=== PATIENT | female | born 1940 | race Caucasian/White ===

== ENCOUNTER 2017-03-23 22:43 | Emergency (ER) | payer MEDICARE, OTHER ==
[~2017-03-23] VITALS: Ht 177.8 cm; Wt 84.2 kg
[2017-03-23] MEDS ORDERED: ONDANSETRON 2MG/ML, 2ML IVPush ONE (23:30)
[2017-03-23] MEDS ORDERED: SODIUM CHLORIDE FLUSH 10ML SYR IVF ONE (23:30)
[2017-03-23] MEDS ORDERED: SODIUM CHLORIDE 0.9% 1,000ML IVBOLUS ONE (23:30)
[2017-03-23 23:41] LABS: DAU SCREEN DISCLAIMER
[2017-03-23 23:44] LABS: HEMATOCRIT 39.4 % (34.6-47.8); HEMOGLOBIN 13.1 g/dL (11.7-16.4); WHITE BLOOD COUNT 5.6 x10^3/uL (3.4-10)
[2017-03-23] MEDS ORDERED: ONDANSETRON 2MG/ML, 2ML ONE (23:47)
[2017-03-23 23:54] LABS: PATH.CAST-FLAG NOT PRESENT; SPERM-FLAG NOT PRESENT; SRC-FLAG NOT PRESENT; XTAL-FLAG NOT PRESENT; YLC-FLAG NOT PRESENT
[2017-03-23 23:56] LABS: BLOOD UREA NITROGEN 16 mg/dL (7-18)
[2017-03-23 23:59] LABS: ACETAMINOPHEN < 2 mcg/mL (10-30); ASPARTATE AMINO TRANSFERASE 24 U/L (15-37)
[2017-03-24] MEDS ORDERED: LEVO25TA4 PO (00:55)
[2017-03-24] MEDS ORDERED: MAGN400T36 PO (01:03)
[2017-03-24] MEDS ORDERED: ESTR1TAB37 PO (01:03)
[2017-03-24] MEDS ORDERED: OMEP10CA4 PO (01:03)
[2017-03-24] MEDS ORDERED: POTA25TA4 PO (01:03)
[2017-03-24] MEDS ORDERED: CITA10TA4 PO (01:03)
[2017-03-24] MEDS ORDERED: GLUC500T11 PO (01:03)
[2017-03-24] MEDS ORDERED: ASCO125T PO (01:03)
[2017-03-24] MEDS ORDERED: TRAM100T2 PO (01:03)
[2017-03-24] MEDS ORDERED: ASPI300S PR (01:03)
[2017-03-24] MEDS ORDERED: VITA1CAP PO (01:03)
[2017-03-24] MEDS ORDERED: MELA1TAB19 SL (01:03)
[2017-03-24] MEDS ORDERED: DICL50TA2 PO (01:03)
[2017-03-24] MEDS ORDERED: BIOT1TAB3 PO (01:03)
[2017-03-24] MEDS ORDERED: CYAN1TAB29 PO (01:03)
[2017-03-24] MEDS ORDERED: CHOL400T5 PO (01:03)
[2017-03-24] MEDS ORDERED: SENN1TAB67 PO (01:03)
[2017-03-24] MEDS ORDERED: MULT-308 PO (01:03)
[2017-03-24 02:00] VITALS: BP 141/86
== END 2017-03-24 02:02 | disposition home or self-care (01) ==
LOC: ED 23:59
DX: T39.392A Poisoning by other nonsteroidal anti-inflammatory drugs [NSAID], intentional self-harm, initial encounter (principal); E03.9 Hypothyroidism, unspecified; Z88.8 Allergy status to other drugs, medicaments and biological substances; Y92.89 Other specified places as the place of occurrence of the external cause
CPT/HCPCS: 36415; 80053; 80307; 80329; 81001; 85025; 87086; 93005; 96361; 96374; 99285; J2405; J7030; G0480

== ENCOUNTER 2018-03-07 18:05 | Inpatient (IN) | payer MEDICARE ==
[~2018-03-07] VITALS: Ht 176.5 cm; Wt 92.4 kg
[~2018-03-07 18:05] MED LIST: ASCO125T PO; ASPI300S PR; BIOT1TAB3 PO; CHOL400T5 PO; CITA10TA4 PO; CYAN1TAB29 PO; DICL50TA2 PO; ESTR1TAB37 PO; GLUC500T11 PO; LEVO25TA4 PO; MAGN400T36 PO; MELA1TAB19 SL; MULT-308 PO; OMEP10CA4 PO; POTA25TA4 PO; SENN1TAB67 PO; TRAM100T33 PO; VITA1CAP PO
[2018-03-07] MEDS ORDERED: ALBUTEROL SULFATE 2.5 MG/3 ML ONE (18:44)
[2018-03-07] MEDS ORDERED: ALBUTEROL/IPRATROPIUM 2.5MG/0.5MG, 3 ML ONE (18:48)
[2018-03-07] MEDS ORDERED: SODIUM CHLORIDE FLUSH 10ML SYR IVF ONE (19:00)
[2018-03-07] MEDS ORDERED: ALBUTEROL/IPRATROPIUM 2.5MG/0.5MG, 3 ML NPPB SCH (19:00)
[2018-03-07 19:26] LABS: BASOPHILS # (AUTO) 0.01 x10^3/uL (0-0.1); BASOPHILS % (AUTO) 0 % (0-1); EOSINOPHILS # (AUTO) 1.41 x10^3/uL (0-0.4); EOSINOPHILS % (AUTO) 11 % (1-7); LYMPHOCYTES # (AUTO) 0.75 x10^3/uL (1-3.4); LYMPHOCYTES % (AUTO) 6 % (22-44); MD NO; MEAN CORPUSCULAR HEMOGLOBIN 32.4 pg (27.0-34.8); MEAN CORPUSCULAR HGB CONC 34.3 g/dL (32.4-35.8); MEAN CORPUSCULAR VOLUME 94.5 fL (80-100); MONOCYTES # (AUTO) 0.45 x10^3/uL (0.2-0.8); MONOCYTES % (AUTO) 4 % (2-9); NEUTROPHILS # (AUTO) 10.22 x10^3/uL (1.8-6.8); NEUTROPHILS % (AUTO) 80 % (42-75); PLATELET COUNT 335 x10^3/uL (130-400); RED BLOOD COUNT 4.09 x10^6/uL (3.82-5.3); RED CELL DISTRIBUTION WIDTH 14.3 % (9.6-15.2)
[2018-03-07] MEDS ORDERED: methylPREDNISolone SOD SUCC 125 MG/2 ML IVP ONE (19:30)
[2018-03-07 19:33] LABS: ALBUMIN 3.3 g/dL (3.4-5.0); ANION GAP 9 mmol/L (5-15); CALCIUM 9.1 mg/dL (8.5-10.1); CHLORIDE 108 mmol/L (98-107)
[2018-03-07 19:38] LABS: CREATININE 1.48 mg/dL (0.55-1.02); TROPONIN I < 0.015 ng/mL (0.000-0.045)
[2018-03-07] MEDS ORDERED: methylPREDNISolone SOD SUCC 125 MG/2 ML ONE (19:48)
[2018-03-07] MEDS ORDERED: BIOT1CAP3 PO (20:04)
[2018-03-07] MEDS ORDERED: ASPI-515 PO (20:04)
[2018-03-07] MEDS ORDERED: CEFTRIAXONE 1,000 MG in SODIUM CHLORIDE 0.9% 50 ML IVPB ONE (21:30)
[2018-03-07] MEDS ORDERED: AZITHROMYCIN 500 MG in SODIUM CHLORIDE 0.9% 250 ML IV SCH (21:30)
[2018-03-07] MEDS ORDERED: ONDANSETRON 2MG/ML, 2ML IVPush PRN (22:30)
[2018-03-07] MEDS ORDERED: BISACODYL 10 MG SUPP PR PRN (22:30)
[2018-03-07] MEDS: HEPARIN 5,000 UNITS/ML, 1ML SQ SCH (22:30)
[2018-03-07] MEDS: CEFTRIAXONE 1,000 MG in SODIUM CHLORIDE 0.9% 50 ML IV SCH (22:30)
[2018-03-07] MEDS ORDERED: POLYETHYLENE GLYCOL 17 GM PACKET PO PRN (22:30)
[2018-03-07 22:33] VITALS: BP 130/75
[2018-03-07] MEDS: SODIUM CHLORIDE 0.9% 1,000 ML IV SCH (23:20)
[2018-03-07] MEDS: AZITHROMYCIN 500 MG in SODIUM CHLORIDE 0.9% 250 ML IV SCH (23:20)
[2018-03-07] MEDS: MELATONIN 5 MG TABLET PO PRN (23:20)
[2018-03-07] MEDS: methylPREDNISolone SOD SUCC 125 MG/2 ML IVPush SCH (23:21)
[2018-03-07 23:28] VITALS: BP 130/75
[2018-03-08] MEDS ORDERED: ALBUTEROL SULFATE 2.5 MG/3 ML NPPB PRN (00:30)
[2018-03-08 01:37] VITALS: BP 126/70
[2018-03-08 04:59] LABS: CULTURE INDICATED? YES; MICROSCOPIC AUTO
[2018-03-08 05:12] LABS: BASOPHILS # (AUTO) 0.01 x10^3/uL (0-0.1); BASOPHILS % (AUTO) 0 % (0-1); EOSINOPHILS # (AUTO) 0.19 x10^3/uL (0-0.4); EOSINOPHILS % (AUTO) 3 % (1-7); LYMPHOCYTES % (AUTO) 8 % (22-44); MD NO; MEAN CORPUSCULAR HEMOGLOBIN 31.8 pg (27.0-34.8); MEAN CORPUSCULAR HGB CONC 33.9 g/dL (32.4-35.8); MEAN CORPUSCULAR VOLUME 93.9 fL (80-100); MEAN PLATELET VOLUME 7.2 fL (7.4-10.4); MONOCYTES % (AUTO) 1 % (2-9); NEUTROPHILS # (AUTO) 6.24 x10^3/uL (1.8-6.8); NEUTROPHILS % (AUTO) 87 % (42-75); PLATELET COUNT 338 x10^3/uL (130-400); RED BLOOD COUNT 3.74 x10^6/uL (3.82-5.3); RED CELL DISTRIBUTION WIDTH 14.3 % (9.6-15.2)
[2018-03-08 05:21] LABS: ALBUMIN 2.9 g/dL (3.4-5.0); ANION GAP 8 mmol/L (5-15); CALCIUM 9.1 mg/dL (8.5-10.1); CHLORIDE 110 mmol/L (98-107)
[2018-03-08 05:25] LABS: ALANINE AMINOTRANSFERASE 16 U/L (12-78); ALKALINE PHOSPHATASE 37 U/L (45-117); BILIRUBIN,TOTAL 0.6 mg/dL (0.2-1.0); CREATININE 1.17 mg/dL (0.55-1.02)
[2018-03-08] MEDS: HEPARIN 5,000 UNITS/ML, 1ML SQ SCH (06:00)
[2018-03-08 08:06] VITALS: BP 145/77
[2018-03-08] MEDS: ASCORBIC ACID 500 MG TABLET PO SCH (08:24)
[2018-03-08] MEDS: K-LYTE 25 MEQ TABLET.EFF PO SCH ×2 (08:24→08:36)
[2018-03-08] MEDS: SENNA/DOCUSATE TABLET PO SCH (08:25)
[2018-03-08] MEDS: CITALOPRAM 10 MG TABLET PO SCH (08:25)
[2018-03-08] MEDS: MULTIVITAMIN 1 TABLET PO SCH (08:25)
[2018-03-08] MEDS: CHOLECALCIFEROL 400 UNITS TABLET PO SCH (08:25)
[2018-03-08] MEDS: ASPIRIN 81 MG TABLET EC PO SCH (08:25)
[2018-03-08] MEDS: methylPREDNISolone SOD SUCC 125 MG/2 ML IVPush SCH ×2 (08:26→17:23)
[2018-03-08] MEDS: MAGNESIUM OXIDE 400 MG TABLET PO SCH (08:26)
[2018-03-08] MEDS: TEMPLATE NON-FORMULARY MED. (Biotin** 1 MG) HOMEMEDPO SCH (08:35)
[2018-03-08] MEDS: ACETAMINOPHEN 325 MG TABLET PO PRN (08:44)
[2018-03-08] MEDS ORDERED: TEMPLATE NON-FORMULARY MED. (Glucosamine Hcl** 500 MG) PO SCH (09:00)
[2018-03-08] MEDS ORDERED: OMEPRAZOLE 10 MG CAPSULE.DR PO SCH (09:00)
[2018-03-08] MEDS ORDERED: LEVOTHYROXINE 25 MCG TABLET PO SCH (09:00)
[2018-03-08] MEDS ORDERED: BENZONATATE 100 MG CAPSULE PO PRN (09:30)
[2018-03-08] MEDS: GUAIFENESIN/DM 200-20MG, 10ML UDC PO PRN ×2 (11:58→18:18)
[2018-03-08] MEDS: RIVAROXABAN 15 MG TABLET PO SCH ×2 (12:23→17:23)
[2018-03-08 13:06] VITALS: BP 121/74
[2018-03-08] MEDS: SODIUM CHLORIDE 0.9% 1,000 ML IV SCH (17:23)
[2018-03-08 21:00] VITALS: BP 138/76
[2018-03-08] MEDS: MELATONIN 5 MG TABLET PO PRN (22:00)
[2018-03-08] MEDS: CEFTRIAXONE 1,000 MG in SODIUM CHLORIDE 0.9% 50 ML IV SCH (22:00)
[2018-03-08] MEDS: AZITHROMYCIN 500 MG in SODIUM CHLORIDE 0.9% 250 ML IV SCH (22:49)
[2018-03-09] MEDS: methylPREDNISolone SOD SUCC 125 MG/2 ML IVPush SCH ×3 (00:13→23:42)
[2018-03-09 01:11] VITALS: BP 117/73
[2018-03-09] MEDS: LEVOTHYROXINE 150 MCG TABLET PO SCH (05:51)
[2018-03-09 07:29] LABS: ALBUMIN 2.6 g/dL (3.4-5.0); ANION GAP 6 mmol/L (5-15); CALCIUM 8.6 mg/dL (8.5-10.1); CHLORIDE 114 mmol/L (98-107); CREATININE 0.92 mg/dL (0.55-1.02)
[2018-03-09] MEDS: OMEPRAZOLE 10 MG CAPSULE.DR PO SCH (07:30)
[2018-03-09 08:19] VITALS: BP 145/81
[2018-03-09] MEDS: TEMPLATE NON-FORMULARY MED. (Biotin** 1 MG) HOMEMEDPO SCH (09:00)
[2018-03-09] MEDS: FLUTICASONE/VILANTEROL 100-25MCG/INH INH SCH (09:00)
[2018-03-09] MEDS ORDERED: ALBUTEROL SULFATE 2.5 MG/3 ML NPPB PRN (09:00)
[2018-03-09] MEDS ORDERED: ALBUTEROL SULFATE 2.5 MG/3 ML NPPB SCH (09:00)
[2018-03-09] MEDS: CHOLECALCIFEROL 400 UNITS TABLET PO SCH (09:13)
[2018-03-09] MEDS: ASCORBIC ACID 500 MG TABLET PO SCH (09:13)
[2018-03-09] MEDS: MULTIVITAMIN 1 TABLET PO SCH (09:13)
[2018-03-09] MEDS: CITALOPRAM 10 MG TABLET PO SCH (09:14)
[2018-03-09] MEDS: MAGNESIUM OXIDE 400 MG TABLET PO SCH (09:14)
[2018-03-09] MEDS: SENNA/DOCUSATE TABLET PO SCH (09:14)
[2018-03-09] MEDS: RIVAROXABAN 15 MG TABLET PO SCH ×2 (09:14→16:09)
[2018-03-09] MEDS: ASPIRIN 81 MG TABLET EC PO SCH (09:14)
[2018-03-09] MEDS: SODIUM CHLORIDE 0.9% 1,000 ML IV SCH (09:15)
[2018-03-09] MEDS: ALBUTEROL/IPRATROPIUM 2.5MG/0.5MG, 3 ML NPPB SCH ×5 (11:00→23:29)
[2018-03-09 12:42] VITALS: BP 143/70
[2018-03-09 20:00] VITALS: BP 124/70
[2018-03-09] MEDS: GUAIFENESIN/DM 200-20MG, 10ML UDC PO PRN (21:31)
[2018-03-09] MEDS: CEFTRIAXONE 1,000 MG in SODIUM CHLORIDE 0.9% 50 ML IV SCH (21:31)
[2018-03-09] MEDS: MELATONIN 5 MG TABLET PO PRN (21:31)
[2018-03-09] MEDS: AZITHROMYCIN 500 MG in SODIUM CHLORIDE 0.9% 250 ML IV SCH (22:14)
[2018-03-10 02:00] VITALS: BP 120/65
[2018-03-10] MEDS: GUAIFENESIN/DM 200-20MG, 10ML UDC PO PRN (04:09)
[2018-03-10] MEDS: ACETAMINOPHEN 325 MG TABLET PO PRN ×2 (04:09→10:05)
[2018-03-10] MEDS: LEVOTHYROXINE 150 MCG TABLET PO SCH (05:52)
[2018-03-10] MEDS: ALBUTEROL/IPRATROPIUM 2.5MG/0.5MG, 3 ML NPPB SCH (07:20)
[2018-03-10] MEDS: OMEPRAZOLE 10 MG CAPSULE.DR PO SCH (07:30)
[2018-03-10 07:45] VITALS: BP 135/71
[2018-03-10] MEDS: TEMPLATE NON-FORMULARY MED. (Biotin** 1 MG) HOMEMEDPO SCH (09:00)
[2018-03-10] MEDS: SODIUM CHLORIDE 0.9% 1,000 ML IV SCH (09:00)
[2018-03-10] MEDS: SENNA/DOCUSATE TABLET PO SCH (09:00)
[2018-03-10] MEDS: CHOLECALCIFEROL 400 UNITS TABLET PO SCH (10:04)
[2018-03-10] MEDS: FLUTICASONE/VILANTEROL 100-25MCG/INH INH SCH (10:04)
[2018-03-10] MEDS: MAGNESIUM OXIDE 400 MG TABLET PO SCH (10:05)
[2018-03-10] MEDS: ASPIRIN 81 MG TABLET EC PO SCH (10:05)
[2018-03-10] MEDS: RIVAROXABAN 15 MG TABLET PO SCH (10:05)
[2018-03-10] MEDS: MULTIVITAMIN 1 TABLET PO SCH (10:05)
[2018-03-10] MEDS: CITALOPRAM 10 MG TABLET PO SCH (10:06)
[2018-03-10] MEDS: ASCORBIC ACID 500 MG TABLET PO SCH (10:06)
[2018-03-10] MEDS: methylPREDNISolone SOD SUCC 125 MG/2 ML IVPush SCH (10:06)
[2018-03-10] MEDS ORDERED: BENZ-17 PO (10:51)
[2018-03-10] MEDS ORDERED: DOXY100T PO (10:51)
[2018-03-10] MEDS ORDERED: RIVA15TA PO (10:51)
[2018-03-10] MEDS ORDERED: RIVA20TA PO (10:51)
[2018-03-10] MEDS ORDERED: FLUT1AER INH (10:51)
[2018-03-10] MEDS ORDERED: SENN1TAB67 PO (10:52)
[2018-03-11] MEDS ORDERED: METH4TAB2 PO (10:13)
[2018-03-29] MEDS ORDERED: RIVAROXABAN 20 MG TABLET PO SCH (18:00)
== END 2018-03-10 12:00 | disposition home or self-care (01) | DRG 175 ==
LOC: ED 21:57 → 3NE 22:28 → DCLOUNGE 03-10 11:45
PROVIDERS: ADMIT Family Medicine; ATTEND Family Medicine
DX: I26.99 Other pulmonary embolism without acute cor pulmonale (principal); J96.01 Acute respiratory failure with hypoxia; R65.10 Systemic inflammatory response syndrome (SIRS) of non-infectious origin without acute organ dysfunction; E44.1 Mild protein-calorie malnutrition; J44.1 Chronic obstructive pulmonary disease with (acute) exacerbation; D72.829 Elevated white blood cell count, unspecified; R00.0 Tachycardia, unspecified; E03.9 Hypothyroidism, unspecified; H40.9 Unspecified glaucoma; Z66 Do not resuscitate; Z82.49 Family history of ischemic heart disease and other diseases of the circulatory system; Z90.710 Acquired absence of both cervix and uterus; Z96.653 Presence of artificial knee joint, bilateral; Z68.29 Body mass index [BMI] 29.0-29.9, adult
CPT/HCPCS: 36415; 71045; 71046; 78582; 80048; 80053; 80069; 81001; 82040; 83605; 83880; 84484; 85025; 87040; 87086; 93005; 93306; 93970; 94640; 96365; 96375; J0456; J0696; J7620; A9540; A9558; C9898; J2930; J7030; J7050

== ENCOUNTER 2019-06-15 16:13 | Inpatient (IN) | payer MEDICARE ==
[~2019-06-15] VITALS: Ht 172.7 cm; Wt 93.5 kg
[~2019-06-15 16:13] MED LIST changes: +ASPI-515 PO; +BENZ-17 PO; +BIOT1CAP3 PO; +DOXY100T PO; +FLUT1AER INH; +METH4TAB2 PO; -OMEP10CA4 PO; +OMEP10CA5 PO; +RIVA15TA PO; +RIVA20TA PO
[2019-06-15] MEDS ORDERED: SODIUM CHLORIDE 0.9% 1,000 ML IV ONE (17:04)
[2019-06-15] MEDS ORDERED: SODIUM CHLORIDE FLUSH 10ML SYR IVF ONE (17:30)
[2019-06-15 17:40] LABS: MICROSCOPIC AUTO
[2019-06-15 17:46] LABS: BASOPHILS # (AUTO) 0.03 x10^3/uL (0-0.1); BASOPHILS % (AUTO) 0 % (0-1); EOSINOPHILS # (AUTO) 0.21 x10^3/uL (0-0.4); EOSINOPHILS % (AUTO) 3 % (1-7); LYMPHOCYTES # (AUTO) 1.31 x10^3/uL (1-3.4); LYMPHOCYTES % (AUTO) 18 % (22-44); MD NO; MEAN CORPUSCULAR HEMOGLOBIN 32.6 pg (27.0-34.8); MEAN CORPUSCULAR HGB CONC 33.1 g/dL (32.4-35.8); MEAN CORPUSCULAR VOLUME 98.3 fL (80-100); MEAN PLATELET VOLUME 7.3 fL (7.4-10.4); MONOCYTES # (AUTO) 0.93 x10^3/uL (0.2-0.8); MONOCYTES % (AUTO) 12 % (2-9); NEUTROPHILS % (AUTO) 67 % (42-75); PLATELET COUNT 380 x10^3/uL (130-400); RED BLOOD COUNT 3.71 x10^6/uL (3.82-5.3); RED CELL DISTRIBUTION WIDTH 13.8 % (9.6-15.2)
[2019-06-15 17:49] LABS: ALANINE AMINOTRANSFERASE 19 U/L (12-78); ALBUMIN 3.4 g/dL (3.4-5.0); ANION GAP 6 mmol/L (5-15); CHLORIDE 102 mmol/L (98-107); CREATININE 1.83 mg/dL (0.55-1.02)
[2019-06-15 17:53] LABS: CULTURE INDICATED? YES
[2019-06-15 17:57] LABS: CALCIUM 14.9 mg/dL (8.5-10.1)
[2019-06-15 17:59] LABS: ALKALINE PHOSPHATASE 134 U/L (45-117); BILIRUBIN,TOTAL 0.5 mg/dL (0.2-1.0); CREATINE KINASE, TOTAL 93 U/L (26-192); TOTAL PROTEIN 7.8 g/dL (6.4-8.2)
[2019-06-15 18:12] LABS: FREE T4 (FREE THYROXINE) 1.59 ng/dL (0.76-1.46)
--- NOTE | 2019-06-15 19:06 | NUR ---
ONEIL PA AT BEDSIDE, PT ASSESSMENT REVIEWED. DISCUSSED PT SP02 LEVELS 89-91% ON RA, LUNG SOUNDS DECREASED T/O BUT NO ADVENTITIOUS SOUNDS HEARD.
[2019-06-15] MEDS ORDERED: BISACODYL 10 MG SUPP PR PRN (19:30)
[2019-06-15] MEDS ORDERED: POTASSIUM CHLORIDE 20 MEQ TAB.ER.PRT PO ONE (19:30)
[2019-06-15] MEDS ORDERED: FUROSEMIDE 40 MG/4 ML IV ONE (19:30)
[2019-06-15] MEDS ORDERED: ONDANSETRON ODT 4 MG PO PRN (19:30)
[2019-06-15] MEDS ORDERED: POLYETHYLENE GLYCOL 17 GM PACKET PO PRN (19:30)
[2019-06-15] MEDS ORDERED: MAGNESIUM SULFATE PMX 2GM/50ML 50 ML IV ONE (19:30)
[2019-06-15 20:04] VITALS: BP 158/78
[2019-06-15] MEDS: IPRATROPIUM 0.5 MG/2.5 ML INHA NPPB SCH (21:20)
[2019-06-15] MEDS: ALBUTEROL SULFATE 2.5MG/0.5ML NPPB SCH (21:25)
[2019-06-15] MEDS: HEPARIN 5,000 UNITS/ML, 1ML SQ SCH (21:31)
[2019-06-15] MEDS: CEFTRIAXONE PMX 1GM/50ML 50 ML IV SCH (22:55)
[2019-06-15] MEDS: NS + 20MEQ KCL 1,000 ML IV SCH (22:55)
[2019-06-16] MEDS: MELATONIN 3 MG TABLET PO SCH ×2 (00:11→22:05)
[2019-06-16 00:41] VITALS: BP 163/51
[2019-06-16] MEDS: ALBUTEROL SULFATE 2.5MG/0.5ML NPPB SCH ×2 (03:00→07:06)
[2019-06-16] MEDS: HEPARIN 5,000 UNITS/ML, 1ML SQ SCH ×3 (04:58→22:05)
[2019-06-16] MEDS: NS + 20MEQ KCL 1,000 ML IV SCH (04:58)
[2019-06-16 05:10] LABS: BASOPHILS # (AUTO) 0.02 x10^3/uL (0-0.1); BASOPHILS % (AUTO) 0 % (0-1); EOSINOPHILS # (AUTO) 0.16 x10^3/uL (0-0.4); EOSINOPHILS % (AUTO) 2 % (1-7); LYMPHOCYTES % (AUTO) 19 % (22-44); MD NO; MEAN CORPUSCULAR HEMOGLOBIN 31.9 pg (27.0-34.8); MEAN CORPUSCULAR HGB CONC 32.6 g/dL (32.4-35.8); MEAN CORPUSCULAR VOLUME 98.1 fL (80-100); MONOCYTES # (AUTO) 0.85 x10^3/uL (0.2-0.8); MONOCYTES % (AUTO) 10 % (2-9); NEUTROPHILS # (AUTO) 5.84 x10^3/uL (1.8-6.8); NEUTROPHILS % (AUTO) 69 % (42-75); PLATELET COUNT 406 x10^3/uL (130-400); RED BLOOD COUNT 3.94 x10^6/uL (3.82-5.3); RED CELL DISTRIBUTION WIDTH 13.4 % (9.6-15.2)
[2019-06-16 05:18] LABS: ALBUMIN 3.5 g/dL (3.4-5.0); ANION GAP 6 mmol/L (5-15); CHLORIDE 103 mmol/L (98-107)
[2019-06-16 05:21] LABS: ALANINE AMINOTRANSFERASE 17 U/L (12-78); ALKALINE PHOSPHATASE 140 U/L (45-117); BILIRUBIN,TOTAL 0.4 mg/dL (0.2-1.0); CREATININE 1.87 mg/dL (0.55-1.02); TOTAL PROTEIN 8.2 g/dL (6.4-8.2)
[2019-06-16] MEDS: IPRATROPIUM 0.5 MG/2.5 ML INHA NPPB SCH (07:06)
[2019-06-16] MEDS: OMEPRAZOLE 10 MG CAPSULE.DR PO SCH (08:03)
[2019-06-16] MEDS: ASCORBIC ACID 500 MG TABLET PO SCH (08:03)
[2019-06-16] MEDS: MAGNESIUM OXIDE 400 MG TABLET PO SCH (08:04)
[2019-06-16] MEDS: CITALOPRAM 10 MG TABLET PO SCH (08:04)
[2019-06-16] MEDS: ASPIRIN 81 MG TABLET EC PO SCH (08:04)
[2019-06-16] MEDS: SENNA/DOCUSATE TABLET PO SCH (08:04)
[2019-06-16 08:30] VITALS: BP 145/76
[2019-06-16] MEDS ORDERED: FLUTICASONE/VILANTEROL 100-25MCG/INH INH SCH (09:00)
[2019-06-16] MEDS ORDERED: TEMPLATE NON-FORMULARY MED. (Glucosamine Hcl** 500 MG) PO SCH (09:00)
[2019-06-16] MEDS ORDERED: TEMPLATE NON-FORMULARY MED. (Biotin** 1 MG) PO SCH (09:00)
[2019-06-16] MEDS ORDERED: TEMPLATE NON-FORMULARY MED. (Melatonin** 1 MG) SL SCH (09:00)
[2019-06-16] MEDS ORDERED: ALBUTEROL SULFATE 2.5MG/0.5ML NPPB PRN (10:00)
[2019-06-16] MEDS ORDERED: BUTALB/APAP/CAFFEINE 50MG/325MG/40MG PO PRN (11:30)
[2019-06-16] MEDS ORDERED: CALCITONIN SALMON 200 UNITS/ML, 2ML SQ SCH (11:30)
[2019-06-16] MEDS ORDERED: MAGNESIUM CITRATE 300ML ORAL SOL PO PRN ×2 (11:30→13:30)
[2019-06-16] MEDS: ACETAMINOPHEN 325 MG TABLET PO PRN (12:29)
[2019-06-16 13:00] VITALS: BP 146/77
[2019-06-16] MEDS: SODIUM CHLORIDE 0.9% 1,000 ML IV SCH ×3 (13:17→22:20)
[2019-06-16] MEDS ORDERED: NS + 20MEQ KCL 1,000 ML IV SCH (19:09)
[2019-06-16 20:16] VITALS: BP 187/80
[2019-06-16] MEDS ORDERED: hydrALAzine 20 MG/ML, 1ML IV ONE (21:30)
[2019-06-16] MEDS: CEFTRIAXONE PMX 1GM/50ML 50 ML IV SCH (22:18)
[2019-06-17] VITALS (13 sets, daily range): BP systolic 147–196; BP diastolic 71–95
[2019-06-17] MEDS: HEPARIN 5,000 UNITS/ML, 1ML SQ SCH ×3 (05:50→20:44)
[2019-06-17 05:56] LABS: ALANINE AMINOTRANSFERASE 17 U/L (12-78); ALBUMIN 3.1 g/dL (3.4-5.0); ANION GAP 5 mmol/L (5-15); CALCIUM 13.1 mg/dL (8.5-10.1); CHLORIDE 108 mmol/L (98-107)
[2019-06-17 05:59] LABS: ALKALINE PHOSPHATASE 122 U/L (45-117); BILIRUBIN,TOTAL 0.3 mg/dL (0.2-1.0); CREATININE 1.88 mg/dL (0.55-1.02); TOTAL PROTEIN 6.7 g/dL (6.4-8.2)
[2019-06-17] MEDS: SODIUM CHLORIDE 0.9% 1,000 ML IV SCH ×4 (08:01→21:38)
[2019-06-17] MEDS: MAGNESIUM OXIDE 400 MG TABLET PO SCH (08:02)
[2019-06-17] MEDS: ASPIRIN 81 MG TABLET EC PO SCH (08:02)
[2019-06-17] MEDS: OMEPRAZOLE 10 MG CAPSULE.DR PO SCH (08:02)
[2019-06-17] MEDS: SENNA/DOCUSATE TABLET PO SCH (08:03)
[2019-06-17] MEDS: ASCORBIC ACID 500 MG TABLET PO SCH (08:03)
[2019-06-17] MEDS: LABETALOL 5 MG/ML SYR. (IV ONLY) IVPush PRN ×2 (08:59→13:26)
[2019-06-17] MEDS: CITALOPRAM 10 MG TABLET PO SCH (09:00)
[2019-06-17] MEDS: AMLODIPINE 5 MG TABLET PO SCH ×2 (09:46→20:43)
[2019-06-17] MEDS ORDERED: CALCITONIN SALMON 200 UNITS/ML, 2ML SQ ONE (11:00)
[2019-06-17] MEDS ORDERED: METO50TA6 PO (11:19)
[2019-06-17] MEDS ORDERED: AMLO5TAB10 PO (11:19)
[2019-06-17] MEDS: METOPROLOL TARTRATE 50 MG TABLET PO SCH ×2 (13:27→17:30)
[2019-06-17] MEDS ORDERED: hydrALAzine 20 MG/ML, 1ML IV PRN (15:30)
[2019-06-17] MEDS: MELATONIN 3 MG TABLET PO SCH (20:43)
[2019-06-17] MEDS: CEFTRIAXONE PMX 1GM/50ML 50 ML IV SCH (21:38)
[2019-06-18] VITALS (7 sets, daily range): BP systolic 132–166; BP diastolic 65–76
[2019-06-18] MEDS: SODIUM CHLORIDE 0.9% 1,000 ML IV SCH ×2 (01:22→05:11)
[2019-06-18] MEDS: HEPARIN 5,000 UNITS/ML, 1ML SQ SCH ×3 (05:11→21:12)
[2019-06-18] MEDS: METOPROLOL TARTRATE 50 MG TABLET PO SCH ×2 (05:11→17:54)
[2019-06-18 06:05] LABS: ALBUMIN 2.7 g/dL (3.4-5.0); ANION GAP 6 mmol/L (5-15); CALCIUM 10.1 mg/dL (8.5-10.1); CHLORIDE 112 mmol/L (98-107)
[2019-06-18 06:08] LABS: ALANINE AMINOTRANSFERASE 15 U/L (12-78); ALKALINE PHOSPHATASE 105 U/L (45-117); BILIRUBIN,TOTAL 0.3 mg/dL (0.2-1.0); CREATININE 1.55 mg/dL (0.55-1.02); TOTAL PROTEIN 6.1 g/dL (6.4-8.2)
[2019-06-18] MEDS ORDERED: POTASSIUM CHLORIDE 10 MEQ TABLET.ER PO SCH (08:00)
[2019-06-18] MEDS ORDERED: MAGNESIUM CITRATE 300ML ORAL SOL PO ONE (08:30)
[2019-06-18] MEDS ORDERED: CEFDINIR 300 MG CAPSULE ONE (09:28)
[2019-06-18] MEDS ORDERED: MAGNESIUM CITRATE 300ML ORAL SOL ONE (09:28)
[2019-06-18] MEDS: AMLODIPINE 5 MG TABLET PO SCH ×2 (09:34→20:03)
[2019-06-18] MEDS: CEFDINIR 300 MG CAPSULE PO SCH ×2 (09:35→20:03)
[2019-06-18] MEDS: CITALOPRAM 10 MG TABLET PO SCH (09:35)
[2019-06-18] MEDS: MAGNESIUM OXIDE 400 MG TABLET PO SCH (09:35)
[2019-06-18] MEDS: SENNA/DOCUSATE TABLET PO SCH (09:35)
[2019-06-18] MEDS: OMEPRAZOLE 10 MG CAPSULE.DR PO SCH (09:35)
[2019-06-18] MEDS: ASPIRIN 81 MG TABLET EC PO SCH (09:35)
[2019-06-18] MEDS: ASCORBIC ACID 500 MG TABLET PO SCH (09:36)
[2019-06-18] MEDS ORDERED: SODIUM CHLORIDE 0.9% 1,000 ML IV SCH (11:30)
[2019-06-18] MEDS: ACETAMINOPHEN 325 MG TABLET PO PRN (15:51)
[2019-06-18] MEDS: MELATONIN 3 MG TABLET PO SCH (20:03)
[2019-06-18] MEDS: TIMOLOL OPHTH 0.5%, 5ML EACHEYE SCH (20:09)
[2019-06-18 23:48] LABS: MICROSCOPIC NOT IND
[2019-06-19] VITALS (12 sets, daily range): BP systolic 102–184; BP diastolic 57–98
[2019-06-19 00:01] LABS: CREATININE,URINE RANDOM 40.3 mg/dL
[2019-06-19] MEDS: HEPARIN 5,000 UNITS/ML, 1ML SQ SCH ×3 (04:57→20:38)
[2019-06-19] MEDS: METOPROLOL TARTRATE 50 MG TABLET PO SCH ×2 (05:00→17:41)
[2019-06-19 05:40] LABS: BASOPHILS # (AUTO) 0.03 x10^3/uL (0-0.1); BASOPHILS % (AUTO) 0 % (0-1); EOSINOPHILS # (AUTO) 0.18 x10^3/uL (0-0.4); EOSINOPHILS % (AUTO) 3 % (1-7); LYMPHOCYTES % (AUTO) 24 % (22-44); MD NO; MEAN CORPUSCULAR HEMOGLOBIN 32.9 pg (27.0-34.8); MEAN CORPUSCULAR HGB CONC 33.1 g/dL (32.4-35.8); MEAN CORPUSCULAR VOLUME 99.4 fL (80-100); MEAN PLATELET VOLUME 7.1 fL (7.4-10.4); MONOCYTES # (AUTO) 0.62 x10^3/uL (0.2-0.8); MONOCYTES % (AUTO) 9 % (2-9); NEUTROPHILS # (AUTO) 4.72 x10^3/uL (1.8-6.8); NEUTROPHILS % (AUTO) 65 % (42-75); PLATELET COUNT 282 x10^3/uL (130-400); RED BLOOD COUNT 2.95 x10^6/uL (3.82-5.3); RED CELL DISTRIBUTION WIDTH 13.9 % (9.6-15.2)
[2019-06-19 05:50] LABS: CALCIUM 10.6 mg/dL (8.5-10.1); CHLORIDE 112 mmol/L (98-107)
[2019-06-19 05:55] LABS: ALANINE AMINOTRANSFERASE 20 U/L (12-78); ALBUMIN 2.8 g/dL (3.4-5.0); ALKALINE PHOSPHATASE 117 U/L (45-117); ANION GAP 5 mmol/L (5-15); BILIRUBIN,TOTAL 0.5 mg/dL (0.2-1.0); CREATININE 1.51 mg/dL (0.55-1.02); TOTAL PROTEIN 6.3 g/dL (6.4-8.2)
[2019-06-19] MEDS ORDERED: POTASSIUM CHLORIDE 20 MEQ TAB.ER.PRT PO SCH (08:00)
[2019-06-19] MEDS ORDERED: POTASSIUM PHOSPHATE 22 MEQ in SODIUM CHLORIDE 0.9% 500 ML IV ONE (08:30)
[2019-06-19] MEDS: ASPIRIN 81 MG TABLET EC PO SCH (08:53)
[2019-06-19] MEDS: CEFDINIR 300 MG CAPSULE PO SCH ×2 (08:53→20:39)
[2019-06-19] MEDS: SENNA/DOCUSATE TABLET PO SCH (08:53)
[2019-06-19] MEDS: OMEPRAZOLE 10 MG CAPSULE.DR PO SCH (08:54)
[2019-06-19] MEDS: MAGNESIUM OXIDE 400 MG TABLET PO SCH (08:54)
[2019-06-19] MEDS: ASCORBIC ACID 500 MG TABLET PO SCH (08:55)
[2019-06-19] MEDS: AMLODIPINE 5 MG TABLET PO SCH ×2 (08:55→20:39)
[2019-06-19] MEDS: POTASSIUM CHLORIDE 20 MEQ TAB.ER.PRT PO SCH ×4 (08:55→20:39)
[2019-06-19] MEDS: CITALOPRAM 10 MG TABLET PO SCH (08:56)
[2019-06-19] MEDS: TIMOLOL OPHTH 0.5%, 5ML EACHEYE SCH ×2 (08:58→20:40)
[2019-06-19] MEDS: ACETAMINOPHEN 325 MG TABLET PO PRN (09:24)
[2019-06-19] MEDS: SODIUM CHLORIDE 0.9% 1,000 ML IV SCH (20:39)
[2019-06-19] MEDS: MELATONIN 3 MG TABLET PO SCH (20:39)
[2019-06-20] VITALS (7 sets, daily range): BP systolic 162–182; BP diastolic 69–84
[2019-06-20] MEDS: SODIUM CHLORIDE 0.9% 1,000 ML IV SCH ×3 (05:24→20:03)
[2019-06-20 05:43] LABS: CHLORIDE 113 mmol/L (98-107)
[2019-06-20 05:51] LABS: ALANINE AMINOTRANSFERASE 17 U/L (12-78); ALBUMIN 2.8 g/dL (3.4-5.0); ALKALINE PHOSPHATASE 114 U/L (45-117); ANION GAP 3 mmol/L (5-15); BILIRUBIN,TOTAL 0.4 mg/dL (0.2-1.0); CALCIUM 10.8 mg/dL (8.5-10.1); CREATININE 1.44 mg/dL (0.55-1.02); TOTAL PROTEIN 6.1 g/dL (6.4-8.2)
[2019-06-20] MEDS: METOPROLOL TARTRATE 50 MG TABLET PO SCH ×2 (06:02→17:17)
[2019-06-20] MEDS: HEPARIN 5,000 UNITS/ML, 1ML SQ SCH ×3 (06:02→21:05)
[2019-06-20] MEDS: TIMOLOL OPHTH 0.5%, 5ML EACHEYE SCH ×2 (09:32→20:01)
[2019-06-20] MEDS: CEFDINIR 300 MG CAPSULE PO SCH ×2 (09:33→20:02)
[2019-06-20] MEDS: SENNA/DOCUSATE TABLET PO SCH (09:33)
[2019-06-20] MEDS: OMEPRAZOLE 10 MG CAPSULE.DR PO SCH (09:33)
[2019-06-20] MEDS: ASCORBIC ACID 500 MG TABLET PO SCH (09:34)
[2019-06-20] MEDS: POTASSIUM CHLORIDE 20 MEQ TAB.ER.PRT PO SCH ×3 (09:34→20:01)
[2019-06-20] MEDS: CITALOPRAM 10 MG TABLET PO SCH (09:35)
[2019-06-20] MEDS: MAGNESIUM OXIDE 400 MG TABLET PO SCH (09:35)
[2019-06-20] MEDS: AMLODIPINE 5 MG TABLET PO SCH ×2 (09:35→20:01)
[2019-06-20] MEDS: ASPIRIN 81 MG TABLET EC PO SCH (09:35)
[2019-06-20] MEDS: CALCITONIN NASAL 200 UNITS/0.09ML, 3.7ML NAS SCH (10:16)
[2019-06-20] MEDS: MELATONIN 3 MG TABLET PO SCH (20:01)
[2019-06-21 01:44] VITALS: BP 161/77
[2019-06-21] MEDS: ACETAMINOPHEN 325 MG TABLET PO PRN (03:36)
[2019-06-21] MEDS: SODIUM CHLORIDE 0.9% 1,000 ML IV SCH ×2 (04:00→12:00)
[2019-06-21] MEDS: HEPARIN 5,000 UNITS/ML, 1ML SQ SCH (05:13)
[2019-06-21] MEDS: METOPROLOL TARTRATE 50 MG TABLET PO SCH (05:43)
[2019-06-21 06:36] LABS: ALANINE AMINOTRANSFERASE 20 U/L (12-78); ALBUMIN 2.7 g/dL (3.4-5.0); ANION GAP 5 mmol/L (5-15); CALCIUM 10.7 mg/dL (8.5-10.1); CHLORIDE 112 mmol/L (98-107)
[2019-06-21 06:39] LABS: ALKALINE PHOSPHATASE 118 U/L (45-117); BILIRUBIN,TOTAL 0.4 mg/dL (0.2-1.0); CREATININE 1.45 mg/dL (0.55-1.02)
[2019-06-21 07:58] VITALS: BP 160/76
[2019-06-21] MEDS: CEFDINIR 300 MG CAPSULE PO SCH (09:11)
[2019-06-21] MEDS: POTASSIUM CHLORIDE 20 MEQ TAB.ER.PRT PO SCH (09:12)
[2019-06-21] MEDS: OMEPRAZOLE 10 MG CAPSULE.DR PO SCH (09:12)
[2019-06-21] MEDS: CITALOPRAM 10 MG TABLET PO SCH (09:12)
[2019-06-21] MEDS: ASCORBIC ACID 500 MG TABLET PO SCH (09:13)
[2019-06-21] MEDS: AMLODIPINE 5 MG TABLET PO SCH (09:13)
[2019-06-21] MEDS: ASPIRIN 81 MG TABLET EC PO SCH (09:13)
[2019-06-21] MEDS: MAGNESIUM OXIDE 400 MG TABLET PO SCH (09:13)
[2019-06-21] MEDS: SENNA/DOCUSATE TABLET PO SCH (09:13)
[2019-06-21] MEDS: CALCITONIN NASAL 200 UNITS/0.09ML, 3.7ML NAS SCH (09:22)
[2019-06-21] MEDS: TIMOLOL OPHTH 0.5%, 5ML EACHEYE SCH (09:23)
[2019-06-21] MEDS ORDERED: CLON-275 PO (09:38)
[2019-06-21] MEDS ORDERED: CEFD300C37 PO (09:38)
[2019-06-21] MEDS ORDERED: HYDR-3343 PO (09:38)
[2019-06-21] MEDS ORDERED: POTA20TA6 PO (09:38)
== END 2019-06-21 13:08 | disposition home health service (06) | DRG 682 ==
LOC: ED 18:03 → EDIP 18:04 → ED 18:12 → 4WST 19:24 → DCLOUNGE 06-21 12:30
PROVIDERS: ADMIT Internal Medicine; ATTEND Internal Medicine
DX: N17.0 Acute kidney failure with tubular necrosis (principal); G93.41 Metabolic encephalopathy; N39.0 Urinary tract infection, site not specified; E03.9 Hypothyroidism, unspecified; E55.9 Vitamin D deficiency, unspecified; E87.6 Hypokalemia; G89.29 Other chronic pain; I10 Essential (primary) hypertension; I16.0 Hypertensive urgency; K59.00 Constipation, unspecified; M19.90 Unspecified osteoarthritis, unspecified site; M35.3 Polymyalgia rheumatica; R32 Unspecified urinary incontinence; Z66 Do not resuscitate; Z80.0 Family history of malignant neoplasm of digestive organs; Z80.1 Family history of malignant neoplasm of trachea, bronchus and lung; Z82.49 Family history of ischemic heart disease and other diseases of the circulatory system; Z90.710 Acquired absence of both cervix and uterus; Z96.653 Presence of artificial knee joint, bilateral; E83.51 Hypocalcemia
CPT/HCPCS: 36415; 70551; 71046; 77075; 80053; 81001; 81003; 81050; 82164; 82306; 82310; 82330; 82384; 82550; 82570; 83615; 83735; 83883; 83930; 83970; 84100; 84155; 84156; 84165; 84166; 84439; 84443; 84550; 85025; 85651; 86335; 87086; 93005; 94640; 99285; G0378; J0696; J1644; J1940; J3480; J7611; J7644; J0360; J0630; J3475; J7030; J7040

== ENCOUNTER → 2019-08-27 | Outpatient (CLI) | payer MEDICARE ==
[~2019-08-27] MED LIST changes: +AMLO5TAB10 PO; +CEFD300C37 PO; +CLON-275 PO; +HYDR-3343 PO; +METO50TA6 PO; +POTA20TA6 PO
== END | disposition home or self-care (01) ==
LOC: RAD 12:13
PROVIDERS: ATTEND Family Medicine
DX: R94.4 Abnormal results of kidney function studies (principal)
CPT/HCPCS: 78070; A9500

== ENCOUNTER 2019-10-05 16:19 | Emergency (ER) | payer MEDICARE ==
[~2019-10-05] VITALS: Ht 172.7 cm; Wt 85.8 kg
[2019-10-05] MEDS ORDERED: methylPREDNISolone SOD SUCC 125 MG/2 ML ONE (16:44)
--- NOTE | 2019-10-05 16:44 | NUR ---
Pt reports alleric symptoms of hives, itching, erythemia & tounge swelling since 1550, pt reports taking tylenol @ 1545. Pt has been evaluated by MD Figueroa, primary RN Nick at bedside. Pt on all monitors.
--- NOTE | 2019-10-05 16:47 | NUR ---
Pt reports alleric symptoms of hives, itching, erythemia & tounge swelling since 1550, pt reports taking tylenol @ 1545, directly before symptoms started. Pt took 75mg PO benadryl after symptoms started. Pt has been evaluated by MD Figueroa, primary RN Nick at bedside. Pt on all monitors.
[2019-10-05] MEDS ORDERED: SODIUM CHLORIDE 0.9% 1,000ML IVBOLUS ONE (17:00)
[2019-10-05] MEDS ORDERED: methylPREDNISolone SOD SUCC 125 MG/2 ML IV ONE (17:00)
[2019-10-05] MEDS ORDERED: DICL75TA3 PO (17:02)
[2019-10-05] MEDS ORDERED: SIMPLY SLEEP (17:02)
[2019-10-05] MEDS ORDERED: TURMERIC (17:02)
[2019-10-05] MEDS ORDERED: CHOL10003 PO (17:02)
--- NOTE | 2019-10-05 17:11 | NUR ---
IV STARTED, ORDERED MEDS AND FLUIDS GIVEN. EKG BEING DONE AT THIS TIME. LAB IN TO DRAW BLOOD. BILAT BEDRAILS UP. PT VSS AT THIS TIME. PT STATED SHE FEELS BETTER AT THIS TIME. PT FACIAL REDNESS IS RESOLVING, PT STATED SHE DOES NOT FEEL HOT BEFORE.
[2019-10-05 17:23] LABS: BASOPHILS # (AUTO) 0.04 x10^3/uL (0-0.1); BASOPHILS % (AUTO) 1 % (0-1); EOSINOPHILS # (AUTO) 0.21 x10^3/uL (0-0.4); EOSINOPHILS % (AUTO) 2 % (1-7); LYMPHOCYTES # (AUTO) 1.68 x10^3/uL (1-3.4); LYMPHOCYTES % (AUTO) 19 % (22-44); MD NO; MEAN CORPUSCULAR HEMOGLOBIN 31.8 pg (27.0-34.8); MEAN CORPUSCULAR HGB CONC 33.7 g/dL (32.4-35.8); MEAN CORPUSCULAR VOLUME 94.4 fL (80-100); MEAN PLATELET VOLUME 6.9 fL (7.4-10.4); MONOCYTES # (AUTO) 0.75 x10^3/uL (0.2-0.8); MONOCYTES % (AUTO) 8 % (2-9); NEUTROPHILS # (AUTO) 6.38 x10^3/uL (1.8-6.8); NEUTROPHILS % (AUTO) 70 % (42-75); PLATELET COUNT 324 x10^3/uL (130-400); RED BLOOD COUNT 3.97 x10^6/uL (3.82-5.3); RED CELL DISTRIBUTION WIDTH 14.1 % (9.6-15.2)
[2019-10-05 17:35] LABS: ALBUMIN 3.1 g/dL (3.4-5.0); ANION GAP 7 mmol/L (5-15); CALCIUM 8.4 mg/dL (8.5-10.1); CHLORIDE 108 mmol/L (98-107); CREATININE 1.22 mg/dL (0.55-1.02)
[2019-10-05 17:39] LABS: TROPONIN I < 0.015 ng/mL (0.000-0.045)
--- NOTE | 2019-10-05 17:45 | NUR ---
PT SYMPTOMS IMPROVING. PT REDNESS ON BACK AND CHEST RESOLVING. PT SPEECH STILL SOUNDS SLURRED, PT STATED TONGUE SWELLING HAS GONE DOWN A BIT, PT BOTTOM LIP REMAINS SWOLLEN. PT STATED SHE FEELS BETTER. FAMILY AT BEDSIDE, VSS.
--- NOTE | 2019-10-05 17:47 | NUR ---
PT UP FOR RECHECK, ALL RESULTS BACK.
[2019-10-05] MEDS ORDERED: SODIUM CHLORIDE FLUSH 10ML SYR IVF ONE (18:00)
[2019-10-05 18:30] VITALS: BP 134/74
== END 2019-10-05 18:44 | disposition home or self-care (01) ==
LOC: ED 18:22
DX: R21 Rash and other nonspecific skin eruption (principal); T39.1X5A Adverse effect of 4-Aminophenol derivatives, initial encounter; R06.02 Shortness of breath; I10 Essential (primary) hypertension; E03.9 Hypothyroidism, unspecified; Y92.9 Unspecified place or not applicable
CPT/HCPCS: 36415; 71045; 80048; 82040; 83880; 84484; 85025; 96374; 99285; J2930; J7030

== ENCOUNTER → 2019-12-06 | Outpatient (CLI) | payer MEDICARE ==
[~2019-12-06] MED LIST changes: +ASCO-90 PO; +BIOT10TA PO; +CHOL10003 PO; +CITA20TA6 PO; +DICL75TA3 PO; +FOLI0.8T2 PO; +LEVO125T5 PO; +OMEP-110 PO; +SIMPLY SLEEP; +TURMERIC; +d-mannose PO; +magnesium PO
[2019-12-06 14:28] LABS: BASOPHILS # (AUTO) 0.02 x10^3/uL (0-0.1); BASOPHILS % (AUTO) 0 % (0-1); EOSINOPHILS # (AUTO) 0.36 x10^3/uL (0-0.4); EOSINOPHILS % (AUTO) 7 % (1-7); LYMPHOCYTES # (AUTO) 1.28 x10^3/uL (1-3.4); LYMPHOCYTES % (AUTO) 24 % (22-44); MD NO; MEAN CORPUSCULAR HEMOGLOBIN 31.7 pg (27.0-34.8); MEAN CORPUSCULAR HGB CONC 33.2 g/dL (32.4-35.8); MEAN CORPUSCULAR VOLUME 95.4 fL (80-100); MEAN PLATELET VOLUME 7.1 fL (7.4-10.4); MONOCYTES % (AUTO) 11 % (2-9); NEUTROPHILS # (AUTO) 3.15 x10^3/uL (1.8-6.8); NEUTROPHILS % (AUTO) 58 % (42-75); PLATELET COUNT 302 x10^3/uL (130-400); RED BLOOD COUNT 4.33 x10^6/uL (3.82-5.3); RED CELL DISTRIBUTION WIDTH 14.4 % (9.6-15.2)
[2019-12-06 14:29] LABS: MICROSCOPIC AUTO
[2019-12-06 14:36] LABS: ALANINE AMINOTRANSFERASE 16 U/L (12-78); ALBUMIN 3.5 g/dL (3.4-5.0); ANION GAP 4 mmol/L (5-15); CALCIUM 8.7 mg/dL (8.5-10.1); CHLORIDE 109 mmol/L (98-107); CREATININE 1.17 mg/dL (0.55-1.02)
[2019-12-06 14:39] LABS: ALKALINE PHOSPHATASE 136 U/L (45-117); BILIRUBIN,TOTAL 0.5 mg/dL (0.2-1.0); TOTAL PROTEIN 7.4 g/dL (6.4-8.2)
[2019-12-06 14:46] LABS: CULTURE INDICATED? NO
== END | disposition home or self-care (01) ==
LOC: STAR 12:44
PROVIDERS: ATTEND Orthopaedic Surgery
DX: Z01.818 Encounter for other preprocedural examination (principal); M16.11 Unilateral primary osteoarthritis, right hip
CPT/HCPCS: 36415; 80053; 81001; 85025; 87081; 93005

== ENCOUNTER 2019-12-12 07:17 | Observation (INO) | payer MEDICARE ==
[~2019-12-12] VITALS: Ht 176.5 cm; Wt 87.0 kg
[~2019-12-12 07:17] MED LIST changes: +EPINEPHRINE 1 MG/ML, 1ML ONE; +KETOROLAC 60 MG/2 ML ONE; +ROPIvacaine/PF 0.2%, 20 ML ONE; +SODIUM CHLORIDE 0.9% 50 ML ONE; +TRANEXAMIC ACID 100 MG/ML, 10ML ONE
[2019-12-12] MEDS ORDERED: CHLORHEXIDINE 15 ML UDC MM ONE (08:00)
[2019-12-12] MEDS ORDERED: LIDOCAINE-MPF 1%, 2ML INFIL ONE (08:00)
[2019-12-12] MEDS: LACTATED RINGERS 1,000 ML IV SCH ×3 (08:27→15:23)
[2019-12-12] MEDS ORDERED: FENTANYL PF 100 MCG/2ML IV PRN (08:30)
[2019-12-12] MEDS ORDERED: PROMETHAZINE 25 MG/ML, 1ML IVPush PRN (08:30)
[2019-12-12] MEDS ORDERED: HYDROmorphone 1 MG/ML, 1ML INJ IVPush PRN (08:30)
[2019-12-12] MEDS ORDERED: MIDAZOLAM 1 MG/ML, 2ML ONE (08:39)
[2019-12-12] MEDS ORDERED: FENTANYL PF 250 MCG/5ML ONE (08:39)
[2019-12-12] MEDS ORDERED: PROPOFOL 10 MG/ML, 20ML ONE ×2 (08:40)
[2019-12-12] MEDS ORDERED: SUCCINYLCHOLINE 20 MG/ML, 10ML ONE (08:40)
[2019-12-12] MEDS ORDERED: CEFAZOLIN 1,000 MG ONE ×2 (08:43)
[2019-12-12] MEDS ORDERED: OXYcodone 5 MG/5 ML ORAL.SOL UDC PO PRN (09:00)
[2019-12-12] MEDS ORDERED: OXYcodone IR 5MG TABLET PO ONE (09:30)
[2019-12-12] MEDS ORDERED: TAMSULOSIN 0.4 MG CAP.ER.24H PO ONE (09:30)
[2019-12-12] MEDS ORDERED: LORazepam 2 MG/ML, 1ML IVPush ONE (09:30)
[2019-12-12] MEDS ORDERED: FAMOTIDINE 20 MG TABLET PO ONE (09:30)
[2019-12-12] MEDS ORDERED: GLYCOPYRROLATE 0.2MG/1ML, 5ML ONE (09:42)
[2019-12-12] MEDS ORDERED: DEXAMETHASONE 4 MG/ML, 1ML ONE ×2 (09:53)
[2019-12-12] MEDS ORDERED: ONDANSETRON 2MG/ML, 2ML ONE (09:53)
[2019-12-12] MEDS ORDERED: EPHEDRINE 50 MG/ML, 1ML ONE (10:44)
[2019-12-12] MEDS ORDERED: ONDANSETRON 4 MG TABLET PO PRN (11:30)
[2019-12-12] MEDS ORDERED: DEXAMETHASONE 4 MG/ML, 1ML IVPush SCH (11:30)
[2019-12-12] MEDS ORDERED: TRANEXAMIC ACID 1,500 MG in SODIUM CHLORIDE 0.9% 100 ML IVPB ONE (11:30)
[2019-12-12] MEDS ORDERED: SENNA/DOCUSATE TABLET PO PRN (11:30)
[2019-12-12] MEDS ORDERED: OXYcodone IR 5MG TABLET PO PRN (11:30)
[2019-12-12] MEDS ORDERED: FENTANYL PF 100 MCG/2ML ONE (11:36)
[2019-12-12] MEDS ORDERED: OXYcodone 5 MG/5 ML ORAL.SOL UDC ONE (11:36)
[2019-12-12 14:00] VITALS: BP 142/80
[2019-12-12] MEDS: OXYcodone IR 5MG TABLET PO PRN ×2 (15:54→22:18)
[2019-12-12] MEDS: ASPIRIN 81 MG TABLET EC PO SCH (18:20)
[2019-12-12] MEDS: CEFAZOLIN PMX 1GM/50ML 50 ML IVPB SCH (18:20)
[2019-12-12 19:05] VITALS: BP 139/70
[2019-12-13 00:56] VITALS: BP 139/75
[2019-12-13] MEDS: CEFAZOLIN PMX 1GM/50ML 50 ML IVPB SCH (01:45)
[2019-12-13 03:45] VITALS: BP 135/75
[2019-12-13] MEDS: OXYcodone IR 5MG TABLET PO PRN ×2 (03:58→07:54)
[2019-12-13] MEDS: ASPIRIN 81 MG TABLET EC PO SCH (05:55)
[2019-12-13] MEDS ORDERED: OMEPRAZOLE 20 MG CAPSULE.DR PO SCH (06:00)
[2019-12-13] MEDS ORDERED: LEVOTHYROXINE 125 MCG TABLET PO SCH (06:00)
[2019-12-13] MEDS: LACTATED RINGERS 1,000 ML IV SCH (07:23)
[2019-12-13 07:50] VITALS: BP 113/51
[2019-12-13] MEDS ORDERED: METOPROLOL TARTRATE 50 MG TAB PO SCH (09:00)
[2019-12-13] MEDS ORDERED: PREGABALIN 75 MG CAPSULE PO SCH (09:00)
[2019-12-13] MEDS ORDERED: ASCORBIC ACID 500 MG TABLET PO SCH (09:00)
[2019-12-13] MEDS ORDERED: CITALOPRAM 20 MG TABLET PO SCH (09:00)
[2019-12-13] MEDS ORDERED: BIOTIN 10 MG HOMEMEDPO SCH (09:00)
[2019-12-13] MEDS ORDERED: FOLIC ACID 1 MG TABLET PO SCH (09:00)
== END 2019-12-13 10:26 | disposition home or self-care (01) ==
LOC: OUT 07:17 → ORIP 11:23 → 4NE 12:55
PROVIDERS: ADMIT Orthopaedic Surgery; ATTEND Orthopaedic Surgery
DX: M16.11 Unilateral primary osteoarthritis, right hip (principal); M65.9 Synovitis and tenosynovitis, unspecified; E03.9 Hypothyroidism, unspecified; K21.9 Gastro-esophageal reflux disease without esophagitis; I12.9 Hypertensive chronic kidney disease with stage 1 through stage 4 chronic kidney disease, or unspecified chronic kidney disease; N18.3 Chronic kidney disease, stage 3 (moderate); M54.5 Low back pain; M43.6 Torticollis; G89.29 Other chronic pain; Z68.25 Body mass index [BMI] 25.0-25.9, adult; Z87.891 Personal history of nicotine dependence; Z79.899 Other long term (current) drug therapy
CPT/HCPCS: 27130; 36415; 72170; 85018; 86850; 86900; 96365; 96366; 97162; C1713; C1776; G0378; J0171; J0330; J0690; J1100; J2250; J2405; J2704; J2795; J3010; J7120; J1885